=== PATIENT | female | born 1995 | race Caucasian/White ===

== ENCOUNTER → 2017-09-08 | Outpatient (CLI) | payer OTHER ==
[~2017-09-08] MED LIST: ESTR1POW41 MC; KET10 PO; MULT-1335 PO; NORG1TAB74 PO; ONDA4TAB PO
== END ==
LOC: LAB 10:19
PROVIDERS: ATTEND Obstetrics & Gynecology
DX: Z11.3 Encounter for screening for infections with a predominantly sexual mode of transmission (principal); Z11.8 Encounter for screening for other infectious and parasitic diseases
CPT/HCPCS: 87210; 87491; 87591